=== PATIENT | female | born 1960 | race Caucasian/White ===

== ENCOUNTER 2016-09-22 20:58 | Emergency (ER) | payer OTHER ==
[~2016-09-22] VITALS: Ht 157.5 cm; Wt 97.7 kg
[~2016-09-22 20:58] MED LIST: ADVAIR 250/501 DISK IH; ASPIR 8181 M1 PO; ASPIRIN EC325 MG PO; ATIVAN1 MG PO; BACTRIM,SEPT1 TABLET PO; GUAIFENESIN WI120 ML PO; HYCODAN SYRUP480 ML PO; KEFLEX500 MG PO; KLONOPIN1 MG PO; KLONOPIN2 MG PO; MOTRIN800 MG PO; NAPROXEN500 MG PO; NORCO 10/3251 TABLET PO; OMEPRAZOLE20 MG PO; PERCOCET 5/31 TABLET PO; PSEUDOEPHEDRINE30 MG PO; SAPHRIS5 MG SL; SEROQUEL200 MG PO; SEROQUEL400 MG PO; SPIRIVA1 INHALATI IH; SYMBICORT60 INHALAT IH; VENTOLIN HFA18 GM IH; VICODIN ES 71 TABLET PO; VICODIN HP 10-1 EACH PO; ZANTAC150 MG PO; ZITHROMAX Z-PA250 MG PO
[2016-09-22 21:08] VITALS: BP 144/60
== END 2016-09-22 21:27 | disposition left against medical advice (07) ==
LOC: EME 20:58
DX: S61.011A Laceration without foreign body of right thumb without damage to nail, initial encounter (principal); Z53.21 Procedure and treatment not carried out due to patient leaving prior to being seen by health care provider; W25.XXXA Contact with sharp glass, initial encounter; F17.200 Nicotine dependence, unspecified, uncomplicated

== ENCOUNTER 2017-06-28 09:29 | Inpatient (IN) | payer OTHER ==
[~2017-06-28] VITALS: Ht 157.5 cm; Wt 95.0 kg
[~2017-06-28 09:29] MED LIST changes: +HEMOCYTE324 MG PO; +ZYPREXA5 MG PO
[2017-08-02] MEDS ORDERED: LOTRISONE15 GM TP (08:11)
[2017-08-22] MEDS ORDERED: SYMBICORT60 INHALAT IH (05:58)
[2017-08-22 06:01] VITALS: BP 129/71
[2017-08-22 11:45] VITALS: BP 96/52
[2017-08-22 12:00] VITALS: BP 116/55
[2017-08-22 18:33] VITALS: BP 90/50
[2017-08-22 20:57] VITALS: BP 103/57
[2017-08-23 00:15] VITALS: BP 108/62
[2017-08-23 04:22] VITALS: BP 144/64
[2017-08-23 05:17] LABS: CHLORIDE 105 mEq/L (99-109); POTASSIUM 4.7 mEq/L (3.7-5.4); SODIUM 140 mEq/L (136-147)
[2017-08-23 05:19] LABS: GLUCOSE 119 mg/dL (70-99)
[2017-08-23 05:20] LABS: ANION GAP 8 MEQ/L (2-14)
[2017-08-23 05:23] LABS: GFR ESTIMATE (CALCULATED) > 59 mL/min/; UREA NITROGEN (BUN) 14 mg/dL (9-23)
[2017-08-23 08:14] VITALS: BP 119/77
[2017-08-23 12:08] VITALS: BP 117/59
[2017-08-23 16:04] VITALS: BP 112/58
[2017-08-23 20:19] VITALS: BP 148/67
[2017-08-24 00:30] VITALS: BP 134/63
[2017-08-24 04:30] VITALS: BP 138/70
[2017-08-24] MEDS ORDERED: TYLENOL REGULA325 MG PO (09:45)
[2017-08-24] MEDS ORDERED: ELIQUIS2.5 MG PO (09:46)
[2017-08-24] MEDS ORDERED: BISAC-EVAC10 MG PR (09:46)
[2017-08-24] MEDS ORDERED: OXYCODONE HCL5 MG PO (09:46)
[2017-08-24 10:27] LABS: HEMATOCRIT 37.5 % (36.0-46.0); MCV 89.9 FL (83-99)
== END 2017-08-24 14:08 | DRG 470 ==
LOC: 2SOUTH 09:29 → ENRESERV 08-21 22:00 → 2SOUTH 08-22 05:19 → 3WEST 08-22 10:12 → 2SOUTH 08-22 12:37 → 3WEST 08-24 14:08
PROVIDERS: Orthopaedic Surgery; Physician Assistant
PROC: 0SRD0J9 Replacement of Left Knee Joint with Synthetic Substitute, Cemented, Open Approach (ICD-10-PCS; principal; 2017-08-22)
DX: M17.12 Unilateral primary osteoarthritis, left knee (principal); M06.9 Rheumatoid arthritis, unspecified; M21.162 Varus deformity, not elsewhere classified, left knee; J44.9 Chronic obstructive pulmonary disease, unspecified; K21.9 Gastro-esophageal reflux disease without esophagitis; F41.9 Anxiety disorder, unspecified; F31.9 Bipolar disorder, unspecified
CPT/HCPCS: 80048; 85014; 85018; 94640; 94640 76; C1713; J0690; J1170; J1885; J2250; J7050; J7120; L1820; S0020

== ENCOUNTER 2017-08-02 07:51 | Emergency (ER) | payer OTHER ==
[~2017-08-02] VITALS: Ht 157.5 cm; Wt 95.7 kg
[2017-08-02] MEDS ORDERED: LOTRISONE15 GM TP (08:11)
[2017-08-02 08:20] VITALS: BP 138/79
== END 2017-08-02 08:21 | disposition home or self-care (01) ==
LOC: EME 07:51
DX: B36.9 Superficial mycosis, unspecified (principal); F17.200 Nicotine dependence, unspecified, uncomplicated; Z88.8 Allergy status to other drugs, medicaments and biological substances
CPT/HCPCS: 99281; 99283